=== PATIENT | male | born 1940 | race Caucasian/White ===

== ENCOUNTER 2019-01-15 10:09 | Inpatient (IN) | payer OTHER, BC ==
[~2019-01-15] VITALS: Ht 182.9 cm; Wt 94.9 kg
[2019-01-15 10:10] VITALS: BP 110/66
[2019-01-15 10:56] LABS: ANION GAP 7 mmol/L (7-16); BUN 23 mg/dL (7-18); CALCIUM 9.4 mg/dL (8.5-10.1); CHLORIDE 108 mmol/L (98-107); CO2 24 mmol/L (21-32); GLUCOSE 99 mg/dL (74-106); POTASSIUM 4.1 mmol/L (3.5-5.1); SODIUM 139 mmol/L (136-145)
[2019-01-15 11:05] LABS: TROPONIN-I <0.06 ng/mL (<0.06)
[2019-01-15 11:18] LABS: HEMATOCRIT 30.7 % (42.0-52.0); MCH 35.3 pg (26.0-34.0); MCHC 32.4 g/dL (28.0-37.0); RBC 2.82 mil/uL (4.50-6.00); RDW 21.6 % (10.5-14.5); WBC 4.2 thou/uL (4.0-11.0)
--- NOTE | 2019-01-15 11:49 | EKG ---
[address] [place] [address] ELECTROCARDIOGRAM REPORT Name: RAPHAELRICHARD Patrizia Room #: REG CHARITY Aden#: [id number] Admission: 01/15/19 Attend Phys: Discharge: Date of : 44 Report #: [id number] THIS REPORT FOR: //name// [facility] ED Test Date: 2019-01-15 Test Time: 11:38:04 Pat Name: RICHARD LIM Department: Room: Gender: M Economic Manager: AMIE : 1940 Requested By: Johnathan Hansen Order Number: [id number] MD: Melquiades Ingram Measurements Intervals Edwards Rate: 103 P: DE: QRS: 5 QRSD: 90 T: 22 QT: 357 QTc: 468 Interpretive Statements Atrial fibrillation LVH by voltage No previous ECG available for comparison Electronically Signed On 01-15-2019 11:48:50 SENIOR FRONT END ENGINEER by Melquiades Ingram [email or web address] <ELECTRONICALLY SIGNED> By: Melquiades Ingram MD 01/15/19 1148 1138 1138 Melquiades Ingram MD /EPI
[2019-01-15 12:09] LABS: ABSOLUTE NEUTROPHILS 1.3 thou/uL (1.4-8.2); CORRECTED WBC 3.5 thou/uL (4.0-11.0); NUCLEATED RBCS 20 /100WBC
[2019-01-15 12:11] LABS: ANISOCYTOSIS 2+; LARGE PLATELETS MANY; MACROCYTES 2+; OVALOCYTES OCCASIONAL; PLATELET COUNT 62 thou/uL (150-400); TARGET CELLS 3+
[2019-01-15 12:20] LABS: URINE BILIRUBIN NEGATIVE (Negative); URINE BLOOD 2+ (Negative); URINE CLARITY CLEAR; URINE COLOR YELLOW; URINE GLUCOSE-RANDOM* NEGATIVE (Negative); URINE KETONES NEGATIVE (Negative); URINE LEUKOCYTES-REFLEX NEGATIVE (Negative); URINE NITRITE-REFLEX NEGATIVE (Negative); URINE PROTEIN (DIPSTICK) NEGATIVE (Negative); URINE UROBILINOGEN 0.2 E.U./dl (0.2-1.0)
[2019-01-15 12:33] LABS: AMP/METHAMP Negative (Negative); BARBITURATES Negative (Negative); BENZODIAZEPINES Negative (Negative); COCAINE Negative (Negative); METHADONE Negative (Negative); OPIATES Negative (Negative); PCP Negative (Negative)
[2019-01-15 12:35] LABS: BACTERIA-REFLEX 1-9 Few /HPF (None Seen); CASTS None Seen /LPF (None Seen); CRYSTALS None Seen /LPF (None Seen); SQUAMOUS 0-3 Few /LPF (0-3); URINE RBC 3-10 Few /HPF (0-2); URINE WBC-REFLEX None Seen /HPF (0-5)
[2019-01-15 15:34] LABS: INR 1.6; PROTIME 16.7 Seconds (9.3-11.4)
[2019-01-15 17:10] VITALS: BP 107/69
[2019-01-15] MEDS ORDERED: SARAFEM20 MG PO (18:57)
[2019-01-15] MEDS ORDERED: OMEPRAZOLE 20 M20 M1 PO (18:57)
[2019-01-15] MEDS ORDERED: XARELTO20 MG PO (18:57)
[2019-01-15] MEDS ORDERED: LOPRESSOR50 MG PO (18:57)
[2019-01-15] MEDS ORDERED: ULTRAM50 MG PO (18:58)
[2019-01-15] MEDS ORDERED: CVS SENNA PLUS1 EACH PO (18:58)
[2019-01-15 21:55] VITALS: BP 107/69
[2019-01-16 05:23] LABS: HEMOGLOBIN 8.7 gm/dL (14.0-18.0)
[2019-01-16 05:26] LABS: HEMATOCRIT 27.2 % (42.0-52.0); MCH 34.7 pg (26.0-34.0); MCHC 32.2 g/dL (28.0-37.0); RBC 2.52 mil/uL (4.50-6.00); RDW 20.9 % (10.5-14.5); WBC 3.2 thou/uL (4.0-11.0)
[2019-01-16 05:36] LABS: CALCIUM 8.6 mg/dL (8.5-10.1); CREATININE 0.9 mg/dL (0.7-1.3); POTASSIUM 3.5 mmol/L (3.5-5.1)
[2019-01-16 06:09] LABS: FOLIC ACID 15.7 ng/mL (8.6-58.9); TSH 0.984 uIU/mL (0.358-3.740)
[2019-01-16 08:00] VITALS: BP 118/74
[2019-01-16 19:30] VITALS: BP 113/62
[2019-01-17 06:05] LABS: HEMATOCRIT 27.9 % (42.0-52.0); HEMOGLOBIN 8.8 gm/dL (14.0-18.0); MCHC 31.5 g/dL (28.0-37.0); MCV 107.8 fL (80.0-100.0); PLATELET COUNT 102 thou/uL (150-400); RBC 2.59 mil/uL (4.50-6.00); RDW 20.5 % (10.5-14.5); WBC 2.8 thou/uL (4.0-11.0)
[2019-01-17 07:00] VITALS: BP 108/67
[2019-01-17 08:05] LABS: ABSOLUTE NEUTROPHILS 0.5 thou/uL (1.4-8.2); ANISOCYTOSIS 2+; MACROCYTES 2+; NUCLEATED RBCS 5 /100WBC
[2019-01-17 08:06] LABS: HYPOCHROMASIA 1+; TARGET CELLS 2+
[2019-01-17 13:13] VITALS: BP 113/62
[2019-01-17 19:38] VITALS: BP 96/51
[2019-01-17 19:43] LABS: ABSOLUTE RETIC COUNT 0.0628 10^6/uL; OBSERVED RETIC COUNT 2.07 % (0.6-2.6)
[2019-01-17 19:52] LABS: % SATURATION 74 % (20-39); IRON 183 ug/dL (65-175); TIBC 247 ug/dL (250-450)
[2019-01-17 21:16] VITALS: BP 122/67
[2019-01-18 08:59] VITALS: BP 126/63
[2019-01-18 09:33] VITALS: BP 126/63
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
[2019-01-18 19:59] VITALS: BP 117/69
[2019-01-18 20:00] VITALS: BP 127/55
[2019-01-18 20:21] VITALS: BP 117/69
[2019-01-18 20:40] VITALS: BP 117/69
[2019-01-19 05:47] LABS: HEMOGLOBIN 8.6 gm/dL (14.0-18.0)
[2019-01-19 05:51] LABS: HEMATOCRIT 26.8 % (42.0-52.0); MCH 34.6 pg (26.0-34.0); MCHC 32.1 g/dL (28.0-37.0); RBC 2.48 mil/uL (4.50-6.00); RDW 20.8 % (10.5-14.5); WBC 3.5 thou/uL (4.0-11.0)
[2019-01-19 07:30] VITALS: BP 95/52
[2019-01-19 09:06] LABS: HEMOGLOBIN 10.2 g/dL (13.0-17.7)
[2019-01-19 09:10] VITALS: BP 95/52
[2019-01-19 19:45] VITALS: BP 117/70
[2019-01-19 22:36] VITALS: BP 117/70
[2019-01-20] VITALS (7 sets, daily range): BP systolic 101; BP diastolic 63
[2019-01-20] MEDS ORDERED: LEXAPRO 10 MG T10 M1 PO (09:13)
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
== END 2019-01-20 13:00 | disposition home health service (06) | DRG 57 ==
LOC: ER 10:09 → SBH 15:21 → EROBS 15:21 → SBH 17:11
PROVIDERS: Emergency Medicine; Hospitalist; Nurse Practitioner Family; ADMIT Psychiatry & Neurology Psychiatry
DX: G31.84 Mild cognitive impairment of uncertain or unknown etiology (principal); D61.818 Other pancytopenia; I48.20 Chronic atrial fibrillation, unspecified; F32.9 Major depressive disorder, single episode, unspecified; K21.9 Gastro-esophageal reflux disease without esophagitis; K70.30 Alcoholic cirrhosis of liver without ascites; F41.9 Anxiety disorder, unspecified; F10.10 Alcohol abuse, uncomplicated; Z66 Do not resuscitate; C80.1 Malignant (primary) neoplasm, unspecified; Z79.01 Long term (current) use of anticoagulants; Z88.6 Allergy status to analgesic agent; Z88.2 Allergy status to sulfonamides
CPT/HCPCS: 10880